=== PATIENT | female | born 1940 | race Caucasian/White ===

== ENCOUNTER 2017-03-01 16:26 | Observation (INO) | payer MEDICARE, BC ==
--- NOTE | 2017-03-01 17:26 | RAD ---
PA AND LATERAL CHEST: 03/01/17 HISTORY: Cough. Heart size is enlarged. There is a very large hiatal hernia present. The lungs are clear of any infil trative process. There are chronic appearing changes. IMPRESSION: Cardiomegaly with chronic lung change. Large hiatal hernia. POS: ALDEN
[2017-03-01 18:01] LABS: Hemoglobin 8.5 g/dL (12.0-16.0); Mean Corpuscular HGB CONC 28.7 g/dL (32.0-36.0); Mean Corpuscular Hemoglobin 20.3 pg (27.0-31.0); Mean Corpuscular Volume 70.8 fl (81.0-99.0); Mean Platelet Volume 7.7 fL (7.4-10.4); Platelet Count 599 thou/uL (130-400); RBC Distribution Width 17.2 % (11.5-14.5); Red Blood Cell (RBC) Count 4.16 mill/uL (4.20-5.40); White Blood Cell (WBC) Count 16.6 thou/uL (4.8-10.8)
[2017-03-01 18:19] LABS: ALT (SGPT) 15 U/L (8-55); AST (SGOT) 24 U/L (5-34); Albumin 4.1 g/dL (3.4-4.8); Alkaline Phosphatase 80 U/L (40-150); Anion Gap 15 mmol/L (10-20); BUN (Urea Nitrogen) 39 mg/dL (9.8-20.1); Bilirubin, Total 0.3 mg/dL (0.2-1.2); Calc. Creatinine Clearance 0 mL/min (70-130); Calcium 11.1 mg/dL (7.8-10.44); Carbon Dioxide 34 mmol/L (23-31); Chloride 94 mmol/L (98-107); Estimated GFR-MDRD 35; Globulin 4.3 g/dL (2.4-3.5); Lipase 44 U/L (8-78); Protein, Total 8.4 g/dL (6.0-8.3); Sodium 139 mmol/L (136-145)
[2017-03-01 18:25] LABS: Glucose 41 mg/dL (83-110)
[2017-03-01] MEDS ORDERED: Dextrose 50% Abboject 50 ML SYRINGE ONE (18:26)
[2017-03-01 18:39] LABS: #Basophils 0.1 thou/uL (0.0-0.2); #Eosinphils 0.1 thou/uL (0.0-0.7); #Lymphocytes 2.4 thou/uL (1.20-3.40); #Monocytes 0.9 thou/uL (0.11-0.59); #Neutrophils 13.2 thou/uL (1.40-6.50); %Basophils 0.3 % (0.0-1.0); %Eosinophils 0.4 % (0.0-10.0); %Lymphocytes 14.2 % (21.0-51.0); %Monocytes 5.4 % (0.0-10.0); %Neutrophils 79.7 % (42.0-75.0); Anisocytosis SLIGHT = 6-15 cells (100X) (0-5/hpf); Hypochromia MODERATE=16-30 cells (100X) (0-5/hpf); MDiff Complete? YES; Microcytosis SLIGHT = 6-15 cells (100X) (0-5/hpf); PLT Morphology Comment Appears Increased; Polychromasia SLIGHT = 2-3 cells (100X) (0-2/hpf)
[2017-03-01 20:53] LABS: CKMB 1.8 ng/mL (0-6.6); Troponin I 0.031 ng/mL (< 0.028)
[2017-03-01] MEDS ORDERED: Furosemide 40 MG/4 ML VIAL ONE (22:17)
[2017-03-01] MEDS ORDERED: Amlodipine 5 MG TAB ONE ×2 (22:44→22:45)
[2017-03-01] MEDS ORDERED: cloNIDine 0.1 MG TAB ONE (22:44)
[2017-03-01 22:56] LABS: CKMB 1.7 ng/mL (0-6.6); Troponin I 0.034 ng/mL (< 0.028)
[2017-03-01] MEDS ORDERED: hydrALAZINE 25 MG TAB PO SCH (23:00)
[2017-03-01] MEDS ORDERED: Ezetimibe 10 MG TAB PO SCH (23:00)
[2017-03-01] MEDS ORDERED: Carvedilol 25 MG TAB PO SCH (23:00)
[2017-03-02] MEDS ORDERED: Ondansetron ODT 4 MG TAB SL PRN (00:35)
[2017-03-02] MEDS ORDERED: Ondansetron HCl/PF 4 MG/2 ML Vial IVP PRN ×2 (00:35→03:22)
[2017-03-02] MEDS ORDERED: Acetaminophen 325 MG TAB PO PRN ×2 (00:35→03:22)
[2017-03-02] MEDS ORDERED: Dextrose 5% in Water 1,000 ML IV SCH (00:45)
[2017-03-02 01:45] LABS: Troponin I 0.032 ng/mL (< 0.028)
[2017-03-02] MEDS ORDERED: HumaLOG 300 UNITS/3 ML VIAL SC PRN ×2 (03:22)
[2017-03-02] MEDS ORDERED: Dextrose 50% Abboject 50 ML SYRINGE SLOW IVP PRN (03:22)
[2017-03-02] MEDS ORDERED: Dextrose 5% in Water 1,000 ML IV PRN ×2 (03:22→06:49)
[2017-03-02] MEDS ORDERED: Mag-Al 1200 mg/1200 mg/30 ML UDCUP PO PRN (03:22)
[2017-03-02] MEDS ORDERED: Ondansetron ODT 4 MG TAB PO PRN (03:22)
--- NOTE | 2017-03-02 03:42 | HP ---
PRIMARY CARE PHYSICIAN: Dr. Domingo CHIEF COMPLAINT: Cough and shortness of breath. HISTORY OF PRESENT ILLNESS: Ms. Malcolm is a very pleasant 76-year-old female that has a history of cor onary artery disease, status post bypass surgery, diabetes mellitus, hypertension, and cardiac defibr illator placed. She was in her usual state of health until a couple of days prior to admission. She says that she was having a hard time breathing. She then started noticing that she was having a cou gh which was productive of some yellowish thick sputum. She denies having any chest pain, but did gómez ve some nausea. She also was feeling feverish and having chills and noticed some pain in her back. She says the shortness of breath was worse with exertion, not so much was walking, but when she moves her arms she says she would get extremely short of breath. Because of these symptoms, she came to [facility] emergency room for evaluation. There it was determined that her proBNP was elevated as well and s he had radiographic findings suggestive of volume overload and she is being admitted for CHF exacerba tion. The patient says she has been compliant with her medications. She says she has also been comp liant with food intake as well as sodium intake. She denies having any increase in lower extremity e danika. REVIEW OF SYSTEMS: CONSTITUTIONAL: She has had subjective chills, but no fevers, no night sweats, no weight loss. HEENT: No headaches, no dizziness, no visual changes, no sore throat, rhinorrhea, neck pain, no kari opathy. PULMONARY: No hemoptysis. She has had some cough productive of yellow sputum. CARDIOVASCULAR: As the history of present illness. GENITOURINARY: No urinary frequency, hematuria, no hesitancy. GASTROINTESTINAL: No abdominal pain. She had some nausea, but no vomiting, no change in bowels. GENITOURINARY: No urinary frequency, hematuria, no hesitancy. NEUROLOGIC: No focal weakness, numbness, no seizures. SKIN/INTEGUMENT: No skin changes. No rash. PAST MEDICAL HISTORY: Diabetes mellitus type 2, chronic kidney disease, coronary artery disease, hyp ertension, hypothyroidism, depression, and anxiety. PAST SURGICAL HISTORY: She has had a 2-vessel bypass surgery, a defibrillator placed, right hip surg yumiko. ALLERGIES: IODINE. SOCIAL HISTORY: She is a former smoker. She quit 20 years ago. She denies any alcohol use. She is . She has no children. She says she lives with a couple and they help her with her medical decisions and their names or Mary Graham. CODE STATUS: FULL CODE. FAMILY HISTORY: Significant for heart disease in her parents and grandparents. CURRENT MEDICATIONS: Torsemide 20 mg twice a day, Aldactone 25 mg daily, Milk of Magnesia p.r.n., Sy nthroid 100 mcg daily, Imdur 60 mg daily, Albuterol nebulizers q.6, Apresoline 100 mg t.i.d., Zetia 1 0 mg daily, Lexapro 10 mg daily, docusate 100 mg twice a day, clonidine 0.2 mg twice a day, carvedilo l 12.5 mg twice daily, aspirin 325 mg daily, Norvasc 5 mg daily, Tylenol #3 p.r.n. PHYSICAL EXAMINATION: GENERAL: She is alert and oriented. She appears to be in no acute distress. She is well-developed, well-nourished. VITAL SIGNS: Blood pressure was 175/82, heart rate 60, respiratory rate 18, temperature is 98.5. HEENT: Her pupils are equal, round, and reactive. Extraocular muscles are intact. Sclerae are anic teric. Throat no erythema, no exudates. NECK: No adenopathy, no bruits. LUNGS: Clear except for occasionally some rales and rhonchi, but very faint and these are noted bila terally. CARDIOVASCULAR: She has a normal S1, S2. I did not appreciate an S3 or S4. No murmurs, clicks or r ubs. ABDOMEN: Soft, nontender, nondistended. Positive for bowel sounds. No rebound or guarding. EXTREMITIES: There is no edema. NEUROLOGICALLY: Her exam is nonfocal. SIGNIFICANT LABORATORY RESULTS: Sodium 139, potassium 4.0, chloride is 94, CO2 is 34, BUN 39, creati nine 1.47, glucose was 41, calcium elevated at 11.1, white blood cell count 16.6, hemoglobin 8.5, hem atocrit is 29.5, platelet count 599. ASSESSMENT AND PLAN: 1. This is a pleasant 76-year-old female that presents with more or less subacute onset of shortness of breath, elevated BNP and x-ray findings consistent with volume overload. She likely has a mild e xacerbation of congestive heart failure which is causing her symptoms and this was likely precipitate d by a viral illness. After being given Lasix in the ER, she says she is feeling much better and I s uspect that she likely will not require a significant amount of continued IV Lasix, will likely just give her another dose in the morning and reassess her. If she is close to her baseline, then likely she can be transitioned back to her regular home medications. 2. It is reported that her flu screen was negative in the ER. Therefore, it is likely this represen ts a viral syndrome, but not influenza. 3. Hyperglycemia, this is likely related to the acute viral illness and she has been placed on a dex trose infusion for this. Hopefully, this should resolve soon. 4. Hypercalcemia, etiology for this is unclear. Her creatinine is actually lower than it has been i n the past and unlikely that it is related to dehydration; therefore, we will go ahead and check an i ntact PTH to see whether or not this could be consistent with hyperparathyroidism. 5. For her diabetes mellitus, we will continue her usual home medications as well as sliding scale i nsulin. 6. Hypothyroidism. Again, continue her home medications for this.
[2017-03-02 05:16] LABS: #Eosinphils 0.1 thou/uL (0.0-0.7); #Lymphocytes 2.7 thou/uL (1.20-3.40); #Monocytes 1.3 thou/uL (0.11-0.59); #Neutrophils 12.8 thou/uL (1.40-6.50); %Eosinophils 0.5 % (0.0-10.0); %Lymphocytes 16.1 % (21.0-51.0); %Monocytes 7.5 % (0.0-10.0); %Neutrophils 75.9 % (42.0-75.0); Hemoglobin 7.4 g/dL (12.0-16.0); Mean Corpuscular Hemoglobin 21.1 pg (27.0-31.0); Mean Corpuscular Volume 70.4 fl (81.0-99.0); Mean Platelet Volume 8.1 fL (7.4-10.4); Platelet Count 483 thou/uL (130-400); RBC Distribution Width 16.9 % (11.5-14.5); Red Blood Cell (RBC) Count 3.48 mill/uL (4.20-5.40); White Blood Cell (WBC) Count 16.8 thou/uL (4.8-10.8)
[2017-03-02 05:58] LABS: Anion Gap 16 mmol/L (10-20); BUN (Urea Nitrogen) 36 mg/dL (9.8-20.1); Calc. Creatinine Clearance 31 mL/min (70-130); Calcium 10.4 mg/dL (7.8-10.44); Carbon Dioxide 31 mmol/L (23-31); Chloride 92 mmol/L (98-107); Estimated GFR-MDRD 37; Glucose 66 mg/dL (83-110); Potassium 3.9 mmol/L (3.5-5.1); Sodium 135 mmol/L (136-145)
[2017-03-02] MEDS ORDERED: Furosemide 40 MG/4 ML VIAL SLOW IVP SCH (06:00)
[2017-03-02] MEDS: Levothyroxine Sodium 100 MCG TAB PO SCH (06:06)
[2017-03-02] MEDS: Furosemide 40 MG/4 ML VIAL SLOW IVP SCH ×2 (06:06→15:03)
[2017-03-02] MEDS: Heparin 5,000 UNITS/ML VIAL SC SCH ×2 (08:04→20:10)
[2017-03-02] MEDS: Docusate 100 MG CAP PO SCH ×2 (08:05→20:10)
[2017-03-02] MEDS: hydrALAZINE 25 MG TAB PO SCH ×3 (08:05→20:10)
[2017-03-02] MEDS: Carvedilol 25 MG TAB PO SCH ×2 (08:05→16:24)
[2017-03-02] MEDS: cloNIDine 0.2 MG TAB PO SCH ×2 (08:05→20:09)
[2017-03-02] MEDS: Ezetimibe 10 MG TAB PO SCH (08:05)
[2017-03-02] MEDS: Spironolactone 25 MG TAB PO SCH (08:06)
[2017-03-02] MEDS: Escitalopram Oxalate 10 mg Tablet PO SCH (08:06)
[2017-03-02] MEDS: Aspirin 325 mg Enteric Coated Tablet PO SCH (08:06)
[2017-03-02] MEDS: Famotidine 20 MG TAB PO SCH (08:06)
[2017-03-02 14:12] VITALS: BMI 23.7
--- NOTE | 2017-03-02 15:01 | PDOC.PN ---
- Subjective Encounter Start Date: 03/02/17 Encounter Start Time: 14:59 Subjective: SOB improved - Objective Resuscitation Status: Resuscitation Status FULL:Full Resuscitation MAR Reviewed: Yes Vital Signs & Weight: Vital Signs (12 hours) Temp Pulse Resp BP BP Pulse Ox 03/02/17 11:06 98.3 F 62 16 164/76 H 92 L 03/02/17 08:00 98.3 F 69 16 03/02/17 07:20 98.3 F 69 16 190/88 H 93 L 03/02/17 04:30 72 18 147/74 H Weight Admit Weight 125 lb 6.4 oz Weight 125 lb 6.4 oz I&O: 03/01/17 03/02/17 03/03/17 06:59 06:59 06:59 Intake Total 600 Output Total 900 Balance -300 Result Diagrams: 03/02/17 04:20 03/02/17 04:20 Additional Labs: Accuchecks 03/02/17 03/02/17 03/02/17 11:13 07:07 06:04 POC Glucose 60 L 86 56 L* 03/02/17 03/02/17 03/01/17 02:17 01:31 23:33 POC Glucose 176 H 52 L* 96 03/01/17 22:29 POC Glucose 48 L* Phys Exam - Physical Examination Neck: no JVD Respiratory: clear to auscultation bilateral Cardiovascular: RRR, no significant murmur Gastrointestinal: soft, positive bowel sounds Musculoskeletal: no edema Dx/Plan (1) Acute on chronic systolic (congestive) heart failure Code(s): I50.23 - ACUTE ON CHRONIC SYSTOLIC (CONGESTIVE) HEART FAILURE Status : Acute (2) CKD (chronic kidney disease) Code(s): N18.9 - CHRONIC KIDNEY DISEASE, UNSPECIFIED Status: Chronic Qualifiers: Chronic kidney disease stage: stage 3 (moderate) Qualified Code(s): N18.3 - Chronic kidney disease, stage 3 (moderate) (3) Anemia Code(s): D64.9 - ANEMIA, UNSPECIFIED Status: Chronic Qualifiers: Anemia type: unspecified type Qualified Code(s): D64.9 - Anemia, unspecified (4) CAD (coronary artery disease) Code(s): I25.10 - ATHSCL HEART DISEASE OF [place] CORONARY ARTERY W/O ANG PCTRS Status: Chronic Qualifiers: Coronary Disease-Associated Artery/Lesion type: [place] artery [place] vs. transplanted heart: [place] heart Associated angina: with unspecified angina Qualified Code(s): I25.119 - Atherosclerotic heart disease of [place] coronary artery with unspecified angina pectoris (5) Cardiomyopathy Code(s): I42.9 - CARDIOMYOPATHY, UNSPECIFIED Status: Chronic Qualifiers: Cardiomyopathy type: ischemic Qualified Code(s): I25.5 - Ischemic cardiomyopathy Comment: with ef of 35% (6) Dyslipidemia Code(s): E78.5 - HYPERLIPIDEMIA, UNSPECIFIED Status: Chronic (7) Hypertension Code(s): I10 - ESSENTIAL (PRIMARY) HYPERTENSION Status: Chronic Qualifiers: Hypertension type: essential hypertension Qualified Code(s): I10 - Essential (primary) hypertension (8) Hypothyroidism Code(s): E03.9 - HYPOTHYROIDISM, UNSPECIFIED Status: Chronic Qualifiers: Hypothyroidism type: unspecified Qualified Code(s): E03.9 - Hypothyroidism , unspecified - Plan cont iv lasix -: cont amlodipine, bblocker, spirolactone. no JULIEN /ARB due to renal failure * .
[2017-03-02] MEDS ORDERED: Amlodipine 5 MG TAB PO SCH (21:00)
[2017-03-02 23:45] VITALS: TEMP 98.4
[2017-03-03] MEDS: Furosemide 40 MG/4 ML VIAL SLOW IVP SCH (05:01)
[2017-03-03] MEDS: Levothyroxine Sodium 100 MCG TAB PO SCH (05:01)
[2017-03-03] MEDS: cloNIDine 0.2 MG TAB PO SCH (08:28)
[2017-03-03] MEDS: Spironolactone 25 MG TAB PO SCH (08:28)
[2017-03-03] MEDS: Ezetimibe 10 MG TAB PO SCH (08:28)
[2017-03-03] MEDS: Escitalopram Oxalate 10 mg Tablet PO SCH (08:28)
[2017-03-03] MEDS: Famotidine 20 MG TAB PO SCH (08:28)
[2017-03-03] MEDS: Aspirin 325 mg Enteric Coated Tablet PO SCH (08:28)
[2017-03-03] MEDS: Carvedilol 25 MG TAB PO SCH (08:28)
[2017-03-03] MEDS: Docusate 100 MG CAP PO SCH (08:28)
[2017-03-03] MEDS: Heparin 5,000 UNITS/ML VIAL SC SCH (08:29)
[2017-03-03] MEDS ORDERED: [UNRECOGNIZED DRUG - OTHER] PO PRN (09:15)
[2017-03-03] MEDS ORDERED: ACETAMINOPHEN PO PRN (09:15)
[2017-03-03] MEDS ORDERED: CODEINE PO PRN (09:15)
[2017-03-03] MEDS: hydrALAZINE 25 MG TAB PO SCH (09:22)
--- NOTE | 2017-03-03 09:42 | DIS ---
DATE OF ADMISSION: 03/02/2017 DATE OF DISCHARGE: 03/03/2017 PRIMARY CARE PROVIDER: Jennifer Domingo M.D. DISCHARGE DISPOSITION: Home. FINAL DIAGNOSES: Acute on chronic systolic heart failure, coronary artery disease, viral infection, a trial fibrillation, and cardiomyopathy. DISCHARGE MEDICATIONS: Same as her admission medicines; amlodipine 5 mg a day, aspirin 325 mg a day, Coreg 12.5 mg twice a day, Colace 100 mg twice a day, Lexapro 10 mg a day, Zetia 10 mg a day, DuoNeb 3 mL q.6 hours p.r.n., Imdur 60 mg a day, levothyroxine 100 mcg a day, Aldactone 25 mg a day, Demade x 20 mg p.o. b.i.d., Catapres 0.2 mg twice a day, Apresoline 100 mg 3 times a day. ALLERGIES: Allergic to IODINE and IV CONTRAST. CODE STATUS: FULL. HOSPITAL COURSE: Patient admitted to [facility] through [facility] wit h shortness of breath. She had minimal evidence of volume overload. She was given IV Lasix. She is dramatically better today and desirous of going home. She is being discharged on her home medicines . She has chronic anemia, 8.5 grams of hemoglobin, and platelet count 599,000. Chronic kidney disea se stage 3. Her BNP was only 690, creatinine is 1.37, BUN 36. PHYSICAL EXAMINATION: VITAL SIGNS: This morning, O2 sat is 93% on room air, respiratory rate 16-18, blood pressure 146/67, pulse 70-80. CHEST: Clear. HEART: Had regular rate and rhythm. She is being discharged for followup with Dr. Domingo in 7 days, heart healthy diet. No consul tations. No procedures.
[2017-03-03 10:05] VITALS: BP 118/60
[2017-03-03 10:52] LABS: #Eosinphils 0.1 thou/uL (0.0-0.7); #Monocytes 0.9 thou/uL (0.11-0.59); #Neutrophils 10.2 thou/uL (1.40-6.50); %Eosinophils 0.4 % (0.0-10.0); %Lymphocytes 15.5 % (21.0-51.0); %Neutrophils 77.1 % (42.0-75.0); Hemoglobin 7.4 g/dL (12.0-16.0); Hypochromia MODERATE=16-30 cells (100X) (0-5/hpf); MDiff Complete? YES; Mean Corpuscular Hemoglobin 20.3 pg (27.0-31.0); Mean Corpuscular Volume 69.9 fl (81.0-99.0); Mean Platelet Volume 7.9 fL (7.4-10.4); Microcytosis MODERATE=15-30 cells (100X) (0-5/hpf); PLT Morphology Comment Appears Increased; Platelet Count 540 thou/uL (130-400); Polychromasia MODERATE = 3-4 cells (100X) (0-2/hpf); RBC Distribution Width 16.8 % (11.5-14.5); Red Blood Cell (RBC) Count 3.65 mill/uL (4.20-5.40); Stomatocytes SLIGHT = 2-5 cells (100X) (0-1/hpf); White Blood Cell (WBC) Count 13.2 thou/uL (4.8-10.8)
[2017-03-03] MEDS ORDERED: Torsemide 20 MG TAB PO SCH (14:00)
== END 2017-03-03 12:32 | disposition home or self-care (01) ==
LOC: ERS 16:26 → 2SW 22:00
PROVIDERS: ADMIT Internal Medicine; ATTEND Internal Medicine
DX: I13.0 Hypertensive heart and chronic kidney disease with heart failure and stage 1 through stage 4 chronic kidney disease, or unspecified chronic kidney disease (principal); E11.22 Type 2 diabetes mellitus with diabetic chronic kidney disease; N18.9 Chronic kidney disease, unspecified; I50.23 Acute on chronic systolic (congestive) heart failure; I25.10 Atherosclerotic heart disease of native coronary artery without angina pectoris; B34.9 Viral infection, unspecified; I48.91 Unspecified atrial fibrillation; E03.9 Hypothyroidism, unspecified; F32.9 Major depressive disorder, single episode, unspecified; F41.9 Anxiety disorder, unspecified; Z79.82 Long term (current) use of aspirin; Z79.899 Other long term (current) drug therapy; Z91.041 Radiographic dye allergy status; Z95.5 Presence of coronary angioplasty implant and graft; Z95.810 Presence of automatic (implantable) cardiac defibrillator; Z87.891 Personal history of nicotine dependence; Z98.42 Cataract extraction status, left eye; Z98.41 Cataract extraction status, right eye; Z98.890 Other specified postprocedural states
CPT/HCPCS: 71020; 80048; 80053; 82550; 82553 ×2; 82962 ×3; 83690; 83880 ×2; 84484 ×3; 85025 ×3; 87804 ×2; 93005; 94640; 96361 ×2; 96374; 96375; 96376 ×2; 97139; 99285; G0378; 36415; 36416; J1644; J1940; J7620

== ENCOUNTER 2017-05-23 13:42 | Inpatient (IN) | payer MEDICARE, BC ==
[2017-05-23 15:56] LABS: Troponin I 0.058 ng/mL (< 0.028)
[2017-05-23] MEDS ORDERED: Guaifenesin DM 100-10/5 ML UDCUP PO PRN (15:56)
[2017-05-23] MEDS ORDERED: Milk Of Magnesia 30 ML UDCUP PO PRN (15:56)
[2017-05-23] MEDS ORDERED: Acetaminophen 325 MG TAB PO PRN (15:56)
[2017-05-23] MEDS ORDERED: cloNIDine 0.2 MG TAB PO PRN (15:56)
[2017-05-23] MEDS ORDERED: Senokot 8.6 MG TAB PO PRN (15:56)
[2017-05-23] MEDS ORDERED: Furosemide 100 MG/10 ML VIAL SLOW IVP SCH (17:00)
[2017-05-23] MEDS: Carvedilol 6.25 MG TAB PO SCH (17:09)
[2017-05-23 18:40] LABS: Troponin I 0.052 ng/mL (< 0.028)
--- NOTE | 2017-05-23 19:20 | HP ---
REASON FOR ADMISSION: CHF exacerbation. HISTORY OF PRESENT ILLNESS: The patient gives history of getting ready to go see Dr. Ricardo around 9:15 in the morning. She developed shortness of breath, which was off and on. The patient also checked her blood pressure, it was 64/ 32. She had taken her morning medications. The patient states this has been ongoing for quite some time now. She thinks she is taking too many medications. The patient ambulates inside the house and of late has been getting shortness of breath even on minimal exertion inside the house. No complaints of cough or chest pain. No complaints of fever, urinary symptoms, palpitations or PND. PAST MEDICAL AND SURGICAL HISTORY: Diabetes mellitus, type 2; chronic kidney disease, stage 3; coronary artery disease; hypertension; hypothyroidism; depression; anxiety; two-vessel bypass surgery; defibrillator; right hip surgery. PERSONAL HISTORY: Quit smoking in 1993 prior to which has smoked one pack a day for nearly 20 years, does not abuse alcohol or drugs. She stays with her friends who are like family to her. FAMILY HISTORY: The patient is outlived all her immediate family. All she is left with is 2-3 distant cousins. Her mom at the age of 98 years from old age. Father at the age of 75, again from old age. CURRENT MEDICATIONS: The patient is on Norvasc 5 mg daily, aspirin 325 mg daily , Coreg 12.5 mg twice daily, clonidine 0.2 mg p.o. twice daily, Colace 100 mg twice daily, Lexapro 10 mg daily, Zetia 10 mg daily, Pepcid 20 mg daily, hydralazine 100 mg 3 times daily, Imdur 60 mg daily, levothyroxine 100 mcg daily , spironolactone 25 mg daily, Demadex 20 mg twice daily. ALLERGIES: IODINE. REVIEW OF SYSTEMS: The following complete review of systems was negative, unless otherwise mentioned in the HPI or below: Constitutional: Weight loss or gain, ability to conduct usual activities. Skin: Rash, itching. Eyes: Double vision, pain. ENT/Mouth: Nose bleeding, neck stiffness, pain, tenderness. Cardiovascular: Palpitations, dyspnea on exertion, orthopnea. Respiratory: Shortness of breath, wheezing, cough, hemoptysis, fever or night sweats. Gastrointestinal: Poor appetite, abdominal pain, heartburn, nausea, vomiting, constipation, or diarrhea. Genitourinary: Urgency, frequency, dysuria, nocturia. Musculoskeletal: Pain, swelling. Neurologic/Psychiatric: Anxiety, depression. Allergy/Immunologic: Skin rash, bleeding tendency. PHYSICAL EXAMINATION: GENERAL: The patient is a 77-year-old female, who is currently not in any acute distress. VITAL SIGNS: Blood pressure currently 150/70, pulse 62 per minute, respiratory rate 20 per minute, temperature 98.1 degrees Fahrenheit, saturating 99% on 2 liters nasal cannula. NECK: Supple, no elevated JVD. HEENT: Eyes: Extraocular muscles are intact. Pupils are reacting to light. Oral cavity: Mucous membranes are moist. No exudates or congestion. CARDIOVASCULAR SYSTEM: S1, S2 heard. Regular rhythm. RESPIRATORY SYSTEM: Air entry 1+ bilateral. Scattered rales plus, scattered rhonchi plus bilateral. ABDOMEN: Soft, bowel sounds heard. No tenderness, rigidity or guarding. EXTREMITIES: Mild peripheral edema, no calf tenderness. VASCULAR SYSTEM: Peripheral pulses 1+ bilateral. No ischemic ulcerations or gangrene. CENTRAL NERVOUS SYSTEM: No gross focal deficits seen. The patient is alert and oriented well. PSYCHIATRIC SYSTEM: The patient's mood is euthymic. No hallucinations or delusions. LABORATORY AND X-RAY FINDINGS: EKG done shows paced rhythm at 60 beats per minute. White count of 12, H&H 7.4 and 26, platelet count is 441, MCV is 61 with 74% neutrophils. Serum bicarbonate 32, BUN 32, creatinine 1.5, glucose 165. Liver enzymes within normal limits. CK-MB 1.0. Troponin I 0.06. BNP 1495, albumin is 3.5. Chest x-ray done shows pulmonary vascular congestion. There are remote left-sided rib fractures seen. AICD device is seen. CLINICAL IMPRESSION AND PLAN: The patient will be under observation on telemetry for acute on chronic congestive heart failure exacerbation. Her last echo done in 04/2016 showed ejection fraction of 35% to 40%. She also had diastolic dysfunction then. The patient will be gently diuresed with Lasix 40 mg IV q.12 hourly. We will continue her on aspirin, Coreg, Zetia, Lexapro, glimepiride, Imdur, DuoNebs, Synthroid and spironolactone as before. The patient's medications need to be spaced in order to avoid hypotensive episodes in the morning. If needed, the patient will be switched over to inpatient status if she were to become hypotensive in the morning again. We will closely monitor her on telemetry. I have discussed code status with her and she would like to be a DO NOT RESUSCITATE. Her roller varnisher is Dr. Hagen and we will consult if patient were to remain in the hospital tomorrow. Her current systolic blood pressure is stable at around 150s. MTDD
[2017-05-23] MEDS: Docusate 100 MG CAP PO SCH (20:46)
[2017-05-23] MEDS: Famotidine 20 MG TAB PO SCH (20:46)
[2017-05-24] MEDS: Levothyroxine Sodium 100 MCG TAB PO SCH (05:32)
[2017-05-24] MEDS: Furosemide 40 MG/4 ML VIAL SLOW IVP SCH ×2 (05:32→13:43)
[2017-05-24 06:08] LABS: Anion Gap 13 mmol/L (10-20); BUN (Urea Nitrogen) 28 mg/dL (9.8-20.1); Calc. Creatinine Clearance 35 mL/min (70-130); Calcium 10.4 mg/dL (7.8-10.44); Carbon Dioxide 35 mmol/L (23-31); Chloride 94 mmol/L (98-107); Estimated GFR-MDRD 45; Glucose 115 mg/dL (83-110); Potassium 3.3 mmol/L (3.5-5.1); Sodium 139 mmol/L (136-145)
[2017-05-24 06:15] LABS: #Eosinphils 0.1 thou/uL (0.0-0.7); #Lymphocytes 1.9 thou/uL (1.20-3.40); #Neutrophils 8.8 thou/uL (1.40-6.50); %Basophils 0.1 % (0.0-1.0); %Eosinophils 0.8 % (0.0-10.0); %Lymphocytes 16.1 % (21.0-51.0); %Monocytes 8.2 % (0.0-10.0); %Neutrophils 74.8 % (42.0-75.0); Anisocytosis SLIGHT = 6-15 cells (100X) (0-5/hpf); Hemoglobin 7.9 g/dL (12.0-16.0); Hypochromia MODERATE=16-30 cells (100X) (0-5/hpf); MDiff Complete? YES; Mean Corpuscular Hemoglobin 18.8 pg (27.0-31.0); Mean Corpuscular Volume 67.4 fl (81.0-99.0); Microcytosis MODERATE=15-30 cells (100X) (0-5/hpf); Platelet Count 464 thou/uL (130-400); Red Blood Cell (RBC) Count 4.17 mill/uL (4.20-5.40); Stomatocytes SLIGHT = 2-5 cells (100X) (0-1/hpf); White Blood Cell (WBC) Count 11.8 thou/uL (4.8-10.8)
[2017-05-24] MEDS: Carvedilol 6.25 MG TAB PO SCH ×2 (09:05→16:39)
[2017-05-24] MEDS: Docusate 100 MG CAP PO SCH ×2 (09:06→20:35)
[2017-05-24] MEDS: Escitalopram Oxalate 10 mg Tablet PO SCH (09:06)
[2017-05-24] MEDS: Ezetimibe 10 MG TAB PO SCH (09:06)
[2017-05-24] MEDS: Spironolactone 25 MG TAB PO SCH (09:06)
[2017-05-24] MEDS: Enoxaparin Sodium 40 MG/0.4 ML SYRINGE SC SCH (09:06)
[2017-05-24] MEDS: Famotidine 20 MG TAB PO SCH ×2 (09:06→20:35)
[2017-05-24] MEDS: Glimepiride 1 MG TAB PO SCH (11:34)
[2017-05-24] MEDS ORDERED: hydrALAZINE 25 MG TAB PO SCH (15:00)
[2017-05-24] MEDS: hydrALAZINE 25 MG TAB PO SCH ×2 (15:45→20:35)
[2017-05-24] MEDS ORDERED: Amlodipine 5 MG TAB PO SCH (21:00)
[2017-05-25 02:30] LABS: Troponin I 0.064 ng/mL (< 0.028)
[2017-05-25 02:37] LABS: Anion Gap 14 mmol/L (10-20); BUN (Urea Nitrogen) 31 mg/dL (9.8-20.1); Calc. Creatinine Clearance 32 mL/min (70-130); Calcium 10.7 mg/dL (7.8-10.44); Carbon Dioxide 37 mmol/L (23-31); Chloride 92 mmol/L (98-107); Estimated GFR-MDRD 42; Potassium 3.6 mmol/L (3.5-5.1); Sodium 139 mmol/L (136-145)
[2017-05-25 02:41] LABS: Glucose 56 mg/dL (83-110)
[2017-05-25] MEDS: Levothyroxine Sodium 100 MCG TAB PO SCH (06:36)
[2017-05-25] MEDS: Furosemide 40 MG/4 ML VIAL SLOW IVP SCH ×2 (06:36→14:51)
[2017-05-25] MEDS: Spironolactone 25 MG TAB PO SCH (08:29)
[2017-05-25] MEDS: Carvedilol 6.25 MG TAB PO SCH (08:29)
[2017-05-25] MEDS: Famotidine 20 MG TAB PO SCH ×2 (08:30→21:39)
[2017-05-25] MEDS: Escitalopram Oxalate 10 mg Tablet PO SCH (08:30)
[2017-05-25] MEDS: hydrALAZINE 25 MG TAB PO SCH ×3 (08:30→21:38)
[2017-05-25] MEDS: Enoxaparin Sodium 40 MG/0.4 ML SYRINGE SC SCH (08:30)
[2017-05-25] MEDS: Ezetimibe 10 MG TAB PO SCH (08:30)
[2017-05-25] MEDS: Docusate 100 MG CAP PO SCH ×2 (08:30→21:39)
[2017-05-25] MEDS ORDERED: Aspirin 325 mg Enteric Coated Tablet PO SCH (09:00)
--- NOTE | 2017-05-25 09:52 | PDOC.PN ---
- Subjective Encounter Start Date: 05/24/17 Encounter Start Time: 10:00 Patient is seen today, alert sand oriented. She is Feeling much better. - Objective MAR Reviewed: Yes Vital Signs & Weight: Vital Signs (12 hours) Temp Pulse Resp BP BP Pulse Ox 05/25/17 08:30 84 201/92 H 05/25/17 08:29 201/92 H 05/25/17 08:00 98.2 F 84 16 190/90 H 97 05/25/17 06:29 98.3 F 86 20 174/78 H 95 05/25/17 02:46 96.9 F L 97 24 H 138/79 96 05/24/17 23:15 77 175/74 H Weight Weight 115 lb 1.6 oz I&O: 05/24/17 05/25/17 05/26/17 06:59 06:59 06:59 Intake Total 980 Output Total 300 Balance 680 Result Diagrams: 05/24/17 04:20 05/25/17 01:57 Additional Labs: Accuchecks 05/25/17 03:50 POC Glucose 137 H Radiology Reviewed by me: Yes Phys Exam - Physical Examination HEENT: PERRLA, moist MMs Neck: no nodes, no JVD Respiratory: wheezing present Cardiovascular: RRR, no significant murmur Gastrointestinal: soft, non-tender Musculoskeletal: pulses present, edema present Dx/Plan (1) NSTEMI (non-ST elevated myocardial infarction) Code(s): I21.4 - NON-ST ELEVATION (NSTEMI) MYOCARDIAL INFARCTION Status: Acute Comment: Will continue Aspirin, Will get Echo for evaalution. No chest pain, EKG normal. (2) Acute on chronic systolic (congestive) heart failure Code(s): I50.23 - ACUTE ON CHRONIC SYSTOLIC (CONGESTIVE) HEART FAILURE Status : Acute Comment: Will continue on lasix 40mg IV BID. (3) Acute respiratory failure with hypoxia Code(s): J96.01 - ACUTE RESPIRATORY FAILURE WITH HYPOXIA Status: Acute Comment: Pt is on Nasal canula, likely from CHF. (4) Afib Code(s): I48.91 - UNSPECIFIED ATRIAL FIBRILLATION Status: Chronic Qualifiers: Atrial fibrillation type: chronic Qualified Code(s): I48.2 - Chronic atrial fibrillation Comment: rate control with Coreg BID. (5) Anemia Code(s): D64.9 - ANEMIA, UNSPECIFIED Status: Chronic Qualifiers: Comment: [place] Hb. (6) CAD (coronary artery disease) Code(s): I25.10 - ATHSCL HEART DISEASE OF [place] CORONARY ARTERY W/O ANG PCTRS Status: Chronic Qualifiers: Comment: [place], h/o CABG, continue on Asprin/ BB. (7) CKD (chronic kidney disease) Code(s): N18.9 - CHRONIC KIDNEY DISEASE, UNSPECIFIED Status: Chronic Qualifiers: Comment: Ben 3 , [place], (8) Hypertension Code(s): I10 - ESSENTIAL (PRIMARY) HYPERTENSION Status: Chronic Qualifiers: Comment: Low Blood poressure at presentation, her meds are held, Will clsoley Monitor. - Plan cont current plan of care, PT/OT, socially responsible investment adviser, incentive spirometry, DVT proph w/lovenox * . - Discharge Day Encounter end time: 10:35 Review of Systems - Review of Systems Constitutional: negative: fever, chills, sweats, weakness, malaise, other Respiratory: Cough, Shortness of Breath, Wheezing Cardiovascular: negative: chest pain, palpitations, orthopnea, paroxysmal nocturnal dyspnea, edema, light headedness, other Gastrointestinal: negative: Nausea, Vomiting, Abdominal Pain, Diarrhea, Constipation, Melena, Hematochezia, Other Genitourinary: negative: Dysuria, Frequency, Incontinence, Hematuria, Retention , Other Musculoskeletal: negative: Neck Pain, Shoulder Pain, Arm Pain, Back Pain, Hand Pain, Leg Pain, Foot Pain, Other Skin: negative: Rash, Lesions, [place], Bruising, Other - Medications/Allergies Allergies/Adverse Reactions: Allergies Allergy/AdvReac Type Severity Reaction Status Date / Time iodine Allergy Verified 04/24/16 14:52 Medications: Current Medications Acetaminophen (Tylenol) 650 mg PO Q4H PRN PRN Reason: Headache/Fever or Pain Albuterol/Ipratropium (Duoneb) 3 ml NEB Q6H PRN PRN Reason: Respiratory Distress Amlodipine Besylate (Norvasc) 5 mg PO 2100 [facility] Last Admin: 05/24/17 20:36 Dose: 5 mg Aspirin (Aspirin Chewable) 81 mg PO DAILY [facility] Last Admin: 05/25/17 08:29 Dose: 81 mg Carvedilol (Coreg) 12.5 mg PO BID-[facility] Last Admin: 05/25/17 08:29 Dose: 12.5 mg Clonidine (Catapres) 0.2 mg PO BID PRN PRN Reason: sbp>180 Docusate Sodium (Colace) 100 mg PO BID [facility] Last Admin: 05/25/17 08:30 Dose: 100 mg Ezetimibe (Zetia) 10 mg PO DAILY [facility] Last Admin: 05/25/17 08:30 Dose: 10 mg Enoxaparin Sodium (Lovenox) 40 mg SC 0900 [facility] Last Admin: 05/25/17 08:30 Dose: 40 mg Escitalopram Oxalate (Lexapro) 10 mg PO DAILY [facility] Last Admin: 05/25/17 08:30 Dose: 10 mg Famotidine (Pepcid) 20 mg PO BID [facility] Last Admin: 05/25/17 08:30 Dose: 20 mg Furosemide (Lasix) 40 mg SLOW IVP 0600,1400 [facility] Last Admin: 05/25/17 06:36 Dose: 40 mg Glimepiride (Amaryl) 1 mg PO [facility] Last Admin: 05/24/17 11:34 Dose: 1 mg Guaifenesin/Dextromethorphan (Robitussin Dm) 15 ml PO Q4H PRN PRN Reason: Cough Hydralazine HCl (Apresoline) 50 mg PO TID [facility] Last Admin: 05/25/17 08:30 Dose: 50 mg Isosorbide Mononitrate (Imdur) 60 mg PO DAILY [facility] Last Admin: 05/25/17 08:30 Dose: 60 mg Lactulose (Lactulose) 20 gm PO DAILYPRN PRN PRN Reason: Constipation Levothyroxine Sodium (Synthroid) 100 mcg PO 0600 [facility] Last Admin: 05/25/17 06:36 Dose: 100 mcg Magnesium Hydroxide (Milk Of Magnesium) 30 ml PO DAILYPRN PRN PRN Reason: Constipation Senna (Senokot) 2 tab PO HSPRN PRN PRN Reason: Constipation [facility]actone ([facility]) [facility] Admin: 05/25/17 08:29 Dose: 25 mg
[2017-05-25] MEDS: Glimepiride 1 MG TAB PO SCH (10:57)
--- NOTE | 2017-05-25 16:35 | PDOC.PN ---
- Subjective Encounter Start Date: 05/25/17 Encounter Start Time: 08:00 Patient is seen today, alert and oriented. She had low BG today, She is on oral GLimeperide, will hold. - Objective MAR Reviewed: Yes Vital Signs & Weight: Vital Signs (12 hours) Temp Pulse Pulse Pulse Resp BP BP 05/25/17 16:00 98.2 F 87 16 05/25/17 14:51 82 187/84 H 05/25/17 12:05 82 77 151/73 H 05/25/17 12:00 75 16 05/25/17 08:30 98.2 F 84 16 201/92 H 05/25/17 08:29 201/92 H 05/25/17 08:00 98.2 F 84 16 05/25/17 06:29 98.3 F 86 20 BP BP Pulse Ox Pulse Ox Pulse Ox 05/25/17 16:00 165/77 H 93 L 05/25/17 14:51 05/25/17 12:05 138/64 94 L 95 05/25/17 12:00 151/72 H 94 L 05/25/17 08:30 97 05/25/17 08:29 05/25/17 08:00 190/90 H 97 05/25/17 06:29 174/78 H 95 Weight Weight 115 lb 1.6 oz I&O: 05/24/17 05/25/17 05/26/17 06:59 06:59 06:59 Intake Total 980 Output Total 300 Balance 680 Result Diagrams: 05/24/17 04:20 05/25/17 01:57 Additional Labs: Accuchecks 05/25/17 05/25/17 11:04 03:50 POC Glucose 151 H 137 H Radiology Reviewed by me: Yes EKG Reviewed by me: Yes Phys Exam - Physical Examination HEENT: PERRLA, moist MMs Neck: no nodes, no JVD Respiratory: no rales, wheezing present Cardiovascular: RRR, no significant murmur Gastrointestinal: soft, non-tender Musculoskeletal: pulses present, edema present Neurological: non-focal, normal sensation Dx/Plan (1) Hypoglycemia associated with diabetes Code(s): E11.649 - TYPE 2 DIABETES MELLITUS WITH HYPOGLYCEMIA WITHOUT COMA Status: Acute Comment: PT is on GLimeperide, Which is high risk for hypoglycemia, will change to glipizide at discharge. Will hold Now. SSI. (2) NSTEMI (non-ST elevated myocardial infarction) Code(s): I21.4 - NON-ST ELEVATION (NSTEMI) MYOCARDIAL INFARCTION Status: Acute Comment: Will continue Aspirin, Will get Echo for evaalution. No chest pain, EKG normal. pending Echo for Wall motion. (3) Acute on chronic systolic (congestive) heart failure Code(s): I50.23 - ACUTE ON CHRONIC SYSTOLIC (CONGESTIVE) HEART FAILURE Status : Acute Comment: Will continue on lasix 40mg IV BID. check BNP for response to lasix. (4) Acute respiratory failure with hypoxia Code(s): J96.01 - ACUTE RESPIRATORY FAILURE WITH HYPOXIA Status: Acute Comment: Pt is on Nasal canula, likely from CHF. (5) Afib Code(s): I48.91 - UNSPECIFIED ATRIAL FIBRILLATION Status: Chronic Qualifiers: Atrial fibrillation type: chronic Qualified Code(s): I48.2 - Chronic atrial fibrillation Comment: rate control with Coreg BID. (6) Anemia Code(s): D64.9 - ANEMIA, UNSPECIFIED Status: Chronic Qualifiers: Comment: Humberto Hb. (7) CAD (coronary artery disease) Code(s): I25.10 - ATHSCL HEART DISEASE OF [place] CORONARY ARTERY W/O ANG PCTRS Status: Chronic Qualifiers: Comment: Humberto, h/o CABG, continue on Asprin/ BB. (8) CKD (chronic kidney disease) Code(s): N18.9 - CHRONIC KIDNEY DISEASE, UNSPECIFIED Status: Chronic Qualifiers: Comment: Ben 3 , Humberto, (9) Hypertension Code(s): I10 - ESSENTIAL (PRIMARY) HYPERTENSION Status: Chronic Qualifiers: Comment: Low Blood poressure at presentation, her meds are held, Will clsoley Monitor. 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 - Discharge Day Encounter end time: 08:35 Review of Systems - Review of Systems Eyes: negative: Pain, Vision Change, Conjunctivae Inflammation, Eyelid Inflammation, Redness, Other Respiratory: Shortness of Breath, SOB with Excertion, Wheezing Cardiovascular: negative: chest pain, palpitations, orthopnea, paroxysmal nocturnal dyspnea, edema, light headedness, other Gastrointestinal: negative: Nausea, Vomiting, Abdominal Pain, Diarrhea, Constipation, Melena, Hematochezia, Other Genitourinary: negative: Dysuria, Frequency, Incontinence, Hematuria, Retention , Other Musculoskeletal: negative: Neck Pain, Shoulder Pain, Arm Pain, Back Pain, Hand Pain, Leg Pain, Foot Pain, Other Skin: negative: Rash, Lesions, Mahin, Bruising, Other - Medications/Allergies Allergies/Adverse Reactions: Allergies Allergy/AdvReac Type Severity Reaction Status Date / Time iodine Allergy Verified 04/24/16 14:52 Medications: Current Medications Acetaminophen (Tylenol) 650 mg PO Q4H PRN PRN Reason: Headache/Fever or Pain Albuterol/Ipratropium (Duoneb) 3 ml NEB Q6H PRN PRN Reason: Respiratory Distress Amlodipine Besylate (Norvasc) 10 mg PO DAILY [facility] Aspirin (Aspirin Chewable) 81 mg PO DAILY [facility] Last Admin: 05/25/17 08:29 Dose: 81 mg Carvedilol (Coreg) 25 mg PO BID[facility] Clonidine (Catapres) 0.2 mg PO BID PRN PRN Reason: sbp>180 Docusate Sodium (Colace) 100 mg PO BID [facility] Last Admin: 05/25/17 08:30 Dose: 100 mg Ezetimibe (Zetia) 10 mg PO DAILY [facility] Last Admin: 05/25/17 08:30 Dose: 10 mg Enoxaparin Sodium (Lovenox) 40 mg SC 0900 [facility] Last Admin: 05/25/17 08:30 Dose: 40 mg Escitalopram Oxalate (Lexapro) 10 mg PO DAILY [facility] Last Admin: 05/25/17 08:30 Dose: 10 mg Famotidine (Pepcid) 20 mg PO BID [facility] Last Admin: 05/25/17 08:30 Dose: 20 mg Furosemide (Lasix) 40 mg SLOW IVP 0600,1400 [facility] Last Admin: 05/25/17 14:51 Dose: 40 mg Guaifenesin/Dextromethorphan (Robitussin Dm) 15 ml PO Q4H PRN PRN Reason: Cough Hydralazine HCl (Apresoline) 75 mg PO TID [facility] Last Admin: 05/25/17 14:51 Dose: 75 mg Isosorbide Mononitrate (Imdur) 60 mg PO DAILY [facility] Last Admin: 05/25/17 08:30 Dose: 60 mg Lactulose (Lactulose) 20 gm PO DAILYPRN PRN PRN Reason: Constipation Levothyroxine Sodium (Synthroid) 100 mcg PO 0600 [facility] Last Admin: 05/25/17 06:36 Dose: 100 mcg Magnesium Hydroxide (Milk Of Magnesium) 30 ml PO DAILYPRN PRN PRN Reason: Constipation Senna (Senokot) 2 tab PO HSPRN PRN PRN Reason: Constipation Spironolactone (Aldactone) 25 mg PO [facility] Last Admin: 05/25/17 08:29 Dose: 25 mg
[2017-05-25] MEDS: Carvedilol 25 MG TAB PO SCH (18:24)
--- NOTE | 2017-05-25 20:24 | EKG ---
Test Reason : STAT Blood Pressure : / mmHG Vent. Rate : 094 BPM Atrial Rate : 288 BPM P-R Int : 000 ms QRS Dur : 094 ms QT Int : 358 ms P-R-T Axes : 000 023 059 degrees QTc Int : 447 ms Atrial fibrillation Voltage criteria for left ventricular hypertrophy Nonspecific ST and T wave abnormality Abnormal ECG When compared with ECG of 25-MAY-2017 01:45, (Unconfirmed) No significant change was found Confirmed by GENOVEVA PARNELL, . SNithin (4) on 05/25/2017 8:23:53 PM Referred By: СЕРГЕЙ Confirmed By:DR. Kendra TOMAS MD
[2017-05-26] MEDS: Furosemide 40 MG/4 ML VIAL SLOW IVP SCH (05:05)
[2017-05-26] MEDS: Levothyroxine Sodium 100 MCG TAB PO SCH (05:06)
[2017-05-26 06:19] LABS: Anion Gap 14 mmol/L (10-20); BUN (Urea Nitrogen) 28 mg/dL (9.8-20.1); Calc. Creatinine Clearance 35 mL/min (70-130); Calcium 10.6 mg/dL (7.8-10.44); Carbon Dioxide 35 mmol/L (23-31); Chloride 91 mmol/L (98-107); Estimated GFR-MDRD 48; Glucose 135 mg/dL (83-110); Potassium 3.7 mmol/L (3.5-5.1); Sodium 136 mmol/L (136-145)
[2017-05-26 06:35] VITALS: BMI 21.3
[2017-05-26] MEDS: Famotidine 20 MG TAB PO SCH (08:44)
[2017-05-26] MEDS: hydrALAZINE 25 MG TAB PO SCH (08:44)
[2017-05-26] MEDS: Escitalopram Oxalate 10 mg Tablet PO SCH (08:44)
[2017-05-26] MEDS: Enoxaparin Sodium 40 MG/0.4 ML SYRINGE SC SCH (08:44)
[2017-05-26] MEDS: Carvedilol 25 MG TAB PO SCH (08:45)
[2017-05-26] MEDS: Ezetimibe 10 MG TAB PO SCH (08:45)
[2017-05-26] MEDS: Docusate 100 MG CAP PO SCH (08:45)
[2017-05-26] MEDS: Spironolactone 25 MG TAB PO SCH (08:45)
[2017-05-26] MEDS ORDERED: Amlodipine 10 MG TAB PO SCH (09:00)
[2017-05-26] MEDS ORDERED: Lisinopril 10 MG TAB PO SCH (13:45)
--- NOTE | 2017-05-26 14:50 | DIS ---
DATE OF ADMISSION: 05/23/2017 DATE OF DISCHARGE: 05/26/2017 ADMITTING DIAGNOSES: Acute on chronic congestive heart failure, systolic dysfunction. DISCHARGE DIAGNOSES: Acute on chronic congestive heart failure, systolic dysfunction. SECONDARY DIAGNOSES: 1. Non-ST elevation myocardial infarction. 2. Uncontrolled hypertension. 3. History of hypothyroidism. 4. History of type 2 diabetes mellitus. 5. Hypoglycemia. INVESTIGATIONS DONE: During this admission are 2D echo showing persistent 35%-40% of ejection fracti on. HISTORY OF PRESENT ILLNESS: In brief, this is a 77-year-old white female with a known history of cor onary artery disease and congestive heart failure. She developed persistent shortness of breath and has a history of hypertension. The patient was noted to have very low blood pressures at home and sh e thinks that she is taking too many medications. Patient also has a history of type 2 diabetes harriet itus and chronic kidney disease. Patient had worsening diabetes with drop in the blood sugars to 50s . The patient's glimepiride was held while she was in the hospital. The patient was very weak and v yumiko lethargic and palliative care was consulted and was discussed with the patient and the daughter a [facility] with a possible hospice in the future. The patient is a high risk for readmission s econdary to multiple comorbidities. She also has a history of atrial fibrillation, but anticoagulati on was not started, as the patient is at high risk for falls. The patient had high blood pressures while in the hospital, so lisinopril was added because of the lo w ejection fraction. She was continued on the beta cuate and spironolactone, and also on Lasix. PHYSICAL EXAMINATION: VITAL SIGNS: On day of discharge, her blood pressures are 125/59, heart rate is 65, respirations 20, saturations 96% on room air. GENERAL: The patient is moderately built and moderately nourished. She does not appear to be in acu te distress. CARDIOVASCULAR: S1, S2 normal. No murmurs, rubs or gallops. LUNGS: Bilateral air entry was equal. No wheezing, no crackles. ABDOMEN: Soft, nontender. No guarding or rebound tenderness. Bowel sounds normal. MUSCULOSKELETAL: No calf tenderness. No pedal edema. No joint tenderness, no joint swelling. SKIN: No cyanosis, no edema, no rash. No pallor. CENTRAL NERVOUS SYSTEM: Cranial examination II-XII intact. No focal deficits were noted. DISCHARGE MEDICATIONS: 1. Tylenol with Codeine. 2. Docusate. 3. Famotidine. 4. Magnesium hydroxide. 5. Torsemide 20 mg p.o. b.i.d. 6. Amlodipine 5 mg p.o. daily. 7. Aspirin 325 mg p.o. daily. 8. Coreg 12.5 mg p.o. b.i.d. 9. Clonidine 0.2 mg p.o. b.i.d. 10. Lexapro 10 mg p.o. daily. 11. Zetia 10 mg p.o. daily. 12. Isosorbide mononitrate 60 mg p.o. daily. 13. Levothyroxine. 14. Spironolactone 25 mg p.o. twice a day. Hydralazine has been changed to 75 mg p.o. t.i.d. and lisinopril 10 mg p.o. daily has been added. DISCHARGE INSTRUCTIONS: Continue activity as tolerated. Advised to follow up with primary care phys ician in 1-2 weeks. Advised to follow up with Cardiology in 2 weeks. Continue with diabetic diet. DISCHARGE PLAN: The patient is discharged home in stable condition with home health. The patient wo uld need home health and plan was to discuss about hospice care. I spent 35 minutes with this patient.
[2017-05-26 16:37] VITALS: BP 145/64; TEMP 97.7
[2017-05-27] MEDS ORDERED: Lisinopril 10 MG TAB PO SCH (09:00)
[2017-05-27] MEDS ORDERED: Famotidine 20 MG TAB PO SCH (09:00)
== END 2017-05-26 16:48 | disposition home health service (06) | DRG 280 ==
LOC: ERS 13:42 → 2SW 14:24 → OBSVTOIN 05-24 17:22 → 2NO 05-25 06:26
PROVIDERS: ADMIT Internal Medicine; ATTEND Internal Medicine
DX: I13.0 Hypertensive heart and chronic kidney disease with heart failure and stage 1 through stage 4 chronic kidney disease, or unspecified chronic kidney disease (principal); J96.01 Acute respiratory failure with hypoxia; I21.4 Non-ST elevation (NSTEMI) myocardial infarction; N18.3 Chronic kidney disease, stage 3 (moderate); I95.9 Hypotension, unspecified; E11.22 Type 2 diabetes mellitus with diabetic chronic kidney disease; E11.649 Type 2 diabetes mellitus with hypoglycemia without coma; I48.2 Chronic atrial fibrillation; D64.9 Anemia, unspecified; I50.23 Acute on chronic systolic (congestive) heart failure; E03.9 Hypothyroidism, unspecified; I25.10 Atherosclerotic heart disease of native coronary artery without angina pectoris; Z51.5 Encounter for palliative care; Z91.81 History of falling; Z79.82 Long term (current) use of aspirin; Z79.84 Long term (current) use of oral hypoglycemic drugs; Z95.810 Presence of automatic (implantable) cardiac defibrillator; Z87.891 Personal history of nicotine dependence; F32.9 Major depressive disorder, single episode, unspecified; F41.9 Anxiety disorder, unspecified; Z95.1 Presence of aortocoronary bypass graft; Z66 Do not resuscitate
CPT/HCPCS: 36415; 36416; 80048; 82553; 83880; 84484; 85025; 93005; 93010; 93306; 93798; 99285; J1650; J1940